=== PATIENT | female | born 1975 | race Caucasian/White ===

== ENCOUNTER 2016-12-24 20:03 | Emergency (ER) | payer OTHER ==
[2016-12-24] MEDS ORDERED: KETOROLAC TROMETHAMINE 60 MG/2 ML VIAL ONE (21:26)
[2016-12-24] MEDS ORDERED: PROMETHAZINE HCL 25 MG/ML VIAL ONE (21:26)
== END 2016-12-24 21:52 | disposition home or self-care (01) ==
LOC: ED 20:03
DX: G43.909 Migraine, unspecified, not intractable, without status migrainosus (principal); I10 Essential (primary) hypertension; E66.9 Obesity, unspecified
CPT/HCPCS: 99282; 96372 ×2; 99283; J2550; J1885

== ENCOUNTER 2017-01-23 13:28 | Emergency (ER) | payer OTHER ==
[2017-01-23] MEDS ORDERED: ALBUTEROL/IPRATROPIUM 2.5/0.5 MG 3 ML/EACH DOSE ONE (13:58)
--- NOTE | 2017-01-23 14:39 | RAD ---
CHEST - 2 VIEWS COMPARISON: Chest 2 views, 08/25/2016 HISTORY: Productive cough since August 2016 FINDINGS: Views: Frontal and lateral chest Lungs: Normal Heart and vessels: Normal Trachea and bronchi: Normal Mediastinum and vika: Normal Costophrenic sulci: Normal Chest wall and bones: Normal. Upper abdomen: Surgical clips in the right upper quadrant. IMPRESSION: Negative 2 view chest.
== END 2017-01-23 15:33 | disposition home or self-care (01) ==
LOC: ED 13:28
DX: J20.9 Acute bronchitis, unspecified (principal); I10 Essential (primary) hypertension; R56.9 Unspecified convulsions; E66.9 Obesity, unspecified; Z79.899 Other long term (current) drug therapy; Z88.5 Allergy status to narcotic agent